=== PATIENT | female | born 1975 | race Caucasian/White ===

== ENCOUNTER 2022-10-13 22:37 | Emergency (ER) | payer OTHER ==
--- NOTE | 2022-10-13 22:49 | ERPHSYRPT ---
- History of Present Illness Time Seen by Provider: 10/13/22 22:48 Source: patient Exam Limitations: no limitations Physician History: This is an obese 47-year-old white female patient who is a diabetic and has hypertension and hyperlipidemia. 3 days ago she had tried some new shoes and over the last few days there has been increasing redness and tenderness and swelling of the right third toe. She stopped wearing those new shoes and yesterday, a granddaughter accidentally stepped on her same toe and there was increased pain. Over the last few days they have been increased redness swelling and evidence of infection with possibly an abscess dorsal aspect right third toe and blistering. She has not had any fevers or chills. She has not had any nausea or vomiting. There is some increased redness on the dorsal aspect of her right foot that travels proximally onto her right anterior ankle. Method of Injury: other (Rubbing from a new shoe onto the right third toe followed by same toe accidentally being stepped on) Occurred: days ago (3) Severity of Pain-Max: moderate Severity of Pain-Current: mild (To moderate) Lower Extremities Pain: 3rd toe: right Modifying Factors: Improves With: movement Associated Symptoms: other (Hurts to bear weight but can do so) Allergies/Adverse Reactions: No Known Drug Allergies Allergy (Unverified 10/13/22 22:54) Home Medications: Atorvastatin Calcium 20 mg PO DAILY 10/13/22 [History] Dulaglutide [Trulicity] 4.5 mg SQ WEEKLY 10/13/22 [History] Empagliflozin [Jardiance] 25 mg PO DAILY 10/13/22 [History] Metformin HCl [Metformin HCl ER] 750 mg PO DAILY 10/13/22 [History] lisinopriL [Lisinopril] 2.5 mg PO DAILY 10/13/22 [History] Hx Tetanus, Diphtheria Vaccination/Date Given: No (PT UNSURE) Hx Influenza Vaccination/Date Given: No Hx Pneumococcal Vaccination/Date Given: No Travel Risk - International Travel Have you traveled outside of the country in past 3 weeks: No - Coronavirus Screening Are you exhibiting any of the following symptoms?: No Close contact with a COVID-19 positive Pt in past 14-21 Days: No - Review of Systems Constitutional: No Symptoms Eyes: No Symptoms Ears, Nose, & Throat: No Symptoms Respiratory: No Symptoms Cardiac: No Symptoms Abdominal/Gastrointestinal: No Symptoms Genitourinary Symptoms: No Symptoms Musculoskeletal: Injury (Right third toe), Joint Redness Skin: Cellulitis Neurological: No Symptoms Psychological: No Symptoms Endocrine: No Symptoms Hematologic/Lymphatic: No Symptoms Immunological/Allergic: No Symptoms All Other Systems: Reviewed and Negative - Past Medical History Pertinent Past Medical History: No - Past Surgical History Past Surgical History: Yes Gastrointestinal: Appendectomy - Social History Smoking Status: Never smoker Exposure to second hand smoke: No Drug Use: none Patient Lives Alone: No - Nursing Vital Signs Nursing Vital Signs: Initial Vital Signs Temperature 97.6 F 10/13/22 22:43 Pulse Rate 88 10/13/22 22:43 Respiratory Rate 16 10/13/22 22:43 Blood Pressure 142/84 10/13/22 22:43 O2 Sat by Pulse Oximetry 99 10/13/22 22:43 Pain Scale Pain Intensity 9 - Physical Exam General Appearance: no apparent distress, alert, anxiety, obese Eyes, Ears, Nose, Throat Exam: normal ENT inspection, moist mucous membranes Neck Exam: normal inspection, non-tender, supple, full range of motion Cardiovascular/Respiratory Exam: chest non-tender, no respiratory distress Gastrointestinal/Abdominal Exam: non-tender Back Exam: normal inspection, normal range of motion, No CVA tenderness, No vertebral tenderness Hips Exam: bilateral: non-tender, normal inspection, normal range of motion, no evidence of injury Legs Exam: bilateral leg: non-tender, normal inspection, normal range of motion, no evidence of injury Knees Exam: bilateral knee: non-tender, normal inspection, normal range of motion, no evidence of injury Ankle Exam: right ankle: swelling (And cellulitis anterior right ankle), left ankle: non-tender, normal inspection, normal range of motion, no evidence of injury Foot Exam: right foot: bone tenderness (Right third toe), infection (Right third toe with dorsal blistering just proximal to the nailbed), soft tissue tenderness (Right third toe traveling proximally dorsal aspect right foot), swelling (Right third toe traveling approximately right dorsal foot), left foot: non-tender, normal inspection, normal range of motion, no evidence of injury Neuro/Tendon Exam: normal sensation, normal motor functions, normal tendon functions Mental Status Exam: alert, oriented x 3, cooperative Skin Exam: other (Cellulitis right foot and right third toe as described above) O2 Delivery: Room Air Procedures - Incision and Drainage Time of Procedure: 23:15 Timeout: Performed Site: Right third toe dorsal aspect Anesthesia: 1% Lidocaine cc's of anesthesia: 2 Blade Size: 15 I & D Procedure: betadine prep, culture obtained Results: small amount pus Progress: Blister of dorsal aspect right third toe unroofed. Granulation tissue present underneath. No odor Ordered Tests: Active Orders 24 hr Category Date Time Status FOOT (MINIMUM 3 VIEWS) Stat Exams 10/13/22 23:04 Taken - Progress Progress: improved, pain not gone completely Progress Note: 10/13/22 23:28 X-ray right foot reveals no evidence of any acute fracture or dislocation. This x-ray was interpreted by me. This patient's medical issue is of moderate complexity. This is based on the patient's complaint, history, additional history obtained from patient's spouse and physical exam findings. The patient has significant findings of infection which includes cellulitis that has mild proximal streaking and swelling of her right foot and blister overlying the proximal right third toe. Based on the above, and the fact that the patient had acute trauma to that foot in that toe, I ordered an x-ray of the right foot and performed an incision and drainage and unroofing of the blister that is present. I also provide the patient with an intramuscular injection of 1 g of Rocephin and 500 mg of oral Levaquin. I obtained a culture of the pus that came from the unroofed blister site. Patient also received a [place] 5/325 pill here in the emergency department and two tablets of the same were sent to her to take at home every 6 hours as needed for pain control since the pharmacies are closed at this time. discharge plan was discussed with the patient and the spouse. That included the medications that were sent to her pharmacy as well as soaking that right foot in warm Epson salts and/or warm soapy water twice a day and to cover the wound with a nonstick gauze. Patient is not to use ointments to that site. Patient is to return to the emergency department in 24 hours for reassessment. Counseled pt/family regarding: lab results, diagnosis, need for follow-up, rad results Medical Desision Making - Independent Historian Additional History obtained from: Spouse - Discussion of managment Reviewed:: Test results (Discussed with the patient and her spouse) Agreed on:: Treatment plan (Discussed with the patient and her spouse), need for follow-up (Discussed with the patient and her spouse) - Diagnostic Testing Diagnostic Testing: Diagnostic tests were ordered,analyzed, and reviewed by me and used in my medical decision making for this patient. Radiologic studies (if ordered) were read by me initially then discussed with the radiologist . - Risk of complications Low Risk: Low risk of morbidity from additional dx testing or treatment - Departure Departure Disposition: Home Clinical Impression: Diabetic infection of right foot Condition: Stable Critical Care Time: No Referrals: BEHZAD FLOYD MD [Primary Care Provider] - Follow up/PCP as directed Additional Instructions: Take your antibiotics as prescribed. Remove your dressing tomorrow morning and soak your foot twice a day in warm soapy water or warm Epson salt water. Blot dry use a hairdryer to dry the site and then cover the wound after each cleansing with a nonstick gauze. Return to the emergency department tomorrow so we can reassess the wound site as discussed. Prescriptions: Oxycodone HCl/Acetaminophen [Percocet 5-325 mg Tablet] 1 each PO Q8H PRN PRN #6 tablet MDD 3 PRN Reason: Moderate To Severe Pain Levofloxacin [Levaquin 500 MG Tablet] 500 mg PO DAILY #7 tablet
[2022-10-13 23:07] VITALS: BP 142/84
[2022-10-13] MEDS ORDERED: NORCO 5/325 MG PO ONE ×2 (23:35→23:36)
[2022-10-13] MEDS ORDERED: Rocephin 1000 MG INJ IM ONE (23:36)
[2022-10-13] MEDS ORDERED: Levofloxacin 500 MG Tablet PO ONE (23:36)
[2022-10-13] MEDS ORDERED: Levofloxacin 500 MG Tablet ONE (23:43)
[2022-10-13] MEDS ORDERED: NORCO 5/325 MG ONE (23:44)
[2022-10-13] MEDS ORDERED: Rocephin 1000 MG INJ ONE (23:44)
[2022-10-14 00:05] VITALS: PULSE 81; O2SAT 98
--- NOTE | 2022-10-14 08:48 | XRAY ---
Indication: 3rd toe pain/infection. Comparison: None 3 nonweightbearing views right foot demonstrates distal 3rd toe soft tissue swelling, small posterior/plantar heel spurs, and tiny spur base 5th metatarsal. No other bony, articular, or soft tissue abnormalities.
== END 2022-10-14 00:17 | disposition home or self-care (01) ==
LOC: ED 22:37
DX: E11.628 Type 2 diabetes mellitus with other skin complications (principal); L03.031 Cellulitis of right toe; M79.674 Pain in right toe(s); I10 Essential (primary) hypertension; E78.5 Hyperlipidemia, unspecified; Z79.85 Long-term (current) use of injectable non-insulin antidiabetic drugs; Z79.84 Long term (current) use of oral hypoglycemic drugs; Z79.899 Other long term (current) drug therapy; Z79.891 Long term (current) use of opiate analgesic
CPT/HCPCS: 10060; 73630; 87070; 87077; 87186; 96372; 99284; J0696; A9270-GY

== ENCOUNTER 2022-10-14 19:43 | Emergency (ER) | payer OTHER ==
[2022-10-14 19:59] VITALS: O2SAT 98
--- NOTE | 2022-10-14 20:40 | ERPHSYRPT ---
- History of Present Illness Time Seen by Provider: 10/14/22 20:39 Source: patient Exam Limitations: no limitations Patient Subjective Stated Complaint: pt states I was in here last night for a sore on my toe. The doctor cut a spot off. They told me to come back if the red ness gets out of the lines. Triage Nursing Assessment: pt ambulated into the er; pt is axo x4; c/o rt foot pain; bruising present to rt foot; open area to rt middle toe; drainage present to rt middle toe; strong pedal pulse to rt foot; skin PDW; no respiratory distress present; vitals wnl Physician History: Patient is a 47-year-old female presents emergency department for wound check. Patient was in our ED yesterday. Patient had an abscess on her toe. It was lanced the attending physician. Patient was started on antibiotics. The area of cellulitis was demarcated. Patient was concerned that the area of cellulitis was moving beyond the demarcated area. No other complaints. Patient has started her antibiotics as planned. No fever. Patient otherwise feels well. Significant other at bedside. They voiced no other complaints or concerns at this time. Portions of this note were created with voice recognition technology. There may be grammatical, spelling, punctuation or sound alike errors Timing/Duration: yesterday Severity: moderate Modifying Factors: Improves With: nothing Associated Symptoms: denies symptoms Allergies/Adverse Reactions: No Known Drug Allergies Allergy (Verified 10/14/22 19:49) Home Medications: Atorvastatin Calcium 20 mg PO DAILY 10/13/22 [History] Dulaglutide [Trulicity] 4.5 mg SQ WEEKLY 10/13/22 [History] Empagliflozin [Jardiance] 25 mg PO DAILY 10/13/22 [History] Metformin HCl [Metformin HCl ER] 750 mg PO DAILY 10/13/22 [History] lisinopriL [Lisinopril] 2.5 mg PO DAILY 10/13/22 [History] Hx Tetanus, Diphtheria Vaccination/Date Given: No (PT UNSURE) Hx Influenza Vaccination/Date Given: No Hx Pneumococcal Vaccination/Date Given: No Travel Risk - International Travel Have you traveled outside of the country in past 3 weeks: No - Coronavirus Screening Are you exhibiting any of the following symptoms?: No Close contact with a COVID-19 positive Pt in past 14-21 Days: No - Vaccine Status Have you recieved a Covid-19 vaccination: Yes Portable Machine Cutter: Moderna - Vaccination Dates Date of 2cond Vaccination (if applicable): n/a - Review of Systems Constitutional: No Symptoms, No Fever, No Chills Eyes: No Symptoms Ears, Nose, & Throat: No Symptoms Respiratory: No Symptoms, No Cough, No Dyspnea Cardiac: No Symptoms, No Chest Pain, No Edema, No Syncope Abdominal/Gastrointestinal: No Symptoms, No Abdominal Pain, No Nausea, No Vomiting, No Diarrhea Genitourinary Symptoms: No Symptoms, No Dysuria Musculoskeletal: No Symptoms, No Back Pain, No Neck Pain Skin: No Symptoms, No Rash Neurological: No Symptoms, No Dizziness, No Focal Weakness, No Sensory Changes Psychological: No Symptoms Endocrine: No Symptoms Hematologic/Lymphatic: No Symptoms Immunological/Allergic: No Symptoms All Other Systems: Reviewed and Negative - Past Medical History Pertinent Past Medical History: Yes Neurological History: No Pertinent History ENT History: No Pertinent History Cardiac History: High Cholesterol, Hypertension Respiratory History: No Pertinent History Endocrine Medical History: Diabetes Type II Musculoskeletal History: No Pertinent History GI Medical History: No Pertinent History History: No Pertinent History Psycho-Social History: No Pertinent History Female Reproductive Disorders: No Pertinent History - Past Surgical History Past Surgical History: Yes Gastrointestinal: Appendectomy Other Surgical History: kidney stone removal - Social History Smoking Status: Never smoker Exposure to second hand smoke: No Drug Use: none Patient Lives Alone: No - Female History Hx Now: No - Nursing Vital Signs Nursing Vital Signs: Initial Vital Signs Temperature 97.5 F 10/14/22 19:50 Pulse Rate 76 10/14/22 19:50 Respiratory Rate 20 10/14/22 19:50 Blood Pressure 121/65 10/14/22 19:50 O2 Sat by Pulse Oximetry 98 10/14/22 19:50 Pain Scale Pain Intensity 7 - Physical Exam General Appearance: no apparent distress, alert Eye Exam: PERRL/EOMI, eyes nml inspection Ears, Nose, Throat Exam: normal ENT inspection, pharynx normal Neck Exam: normal inspection, full range of motion Respiratory Exam: airway intact, No respiratory distress, No accessory muscle use Cardiovascular Exam: regular rate/rhythm, normal peripheral pulses Gastrointestinal/Abdomen Exam: No tenderness, No mass Back Exam: normal inspection, normal range of motion, No CVA tenderness, No vertebral tenderness Extremity Exam: normal inspection, normal range of motion, pelvis stable, other (Wound to right foot third digit. Healthy granular tissue observed. No lymphangitis.) Neurologic Exam: alert, oriented x 3, cooperative, normal mood/affect, sensation nml, No motor deficits Skin Exam: normal color, warm, dry, No rash Lymphatic Exam: No adenopathy SpO2 Interpretation: normal SpO2: 98 O2 Delivery: Room Air - Course Nursing assessment & vital signs reviewed: Yes - Progress Progress: improved Progress Note: Patient is a 47-year-old female history of diabetes presents to our ED for wound check. Patient was in our ER last night and advised to come in for wound check. Patient observed that overnight the area of cellulitis has expanded somewhat. However on my exam the area of cellulitis is still within the demarcated area. Physical exam shows a wound to the dorsal aspect of the third digit right foot. There is good granular tissue at the base of the wound. Patient's presentation is acute. Complexity of patient problem is low. Patient's history of diabetes has potential to complicate wound healing. Patient has started to take the antibiotics prescribed to her last night. Chance gray's diagnosis today was made based on history and physical. No specialized testing required. Patient has no complaints of pain. No indication for additional management. A referral to podiatry was provided to patient. Patient can see the lamination builder on Wednesday for further evaluation and treatment. Patient agrees to follow-up with podiatry as discussed. Level VM service provided was straightforward. Complexity the problem is low. Complexity of data reviewed and analyzed is not applicable. Risk of management and or risk of morbidity/mortality patient management is low. Patient served as independent historian. Significant other at bedside. Patient voices no other complaints or concerns at this time. Portions of this note were created with voice recognition technology. There may be grammatical, spelling, punctuation or sound alike errors I 10/14/22 20:43 Counseled pt/family regarding: diagnosis, need for follow-up Medical Desision Making - Diagnostic Testing Diagnostic Testing: Diagnostic tests were ordered,analyzed, and reviewed by me and used in my medical decision making for this patient. Radiologic studies (if ordered) were read by me initially then discussed with the radiologist . - Departure Departure Disposition: Home Clinical Impression: Visit for wound check Condition: Stable Critical Care Time: No Referrals: MARIEL,BEHZAD, MD [Primary Care Provider] - Follow up/PCP as directed Additional Instructions: Discharge/Care Plan MIKAELA CARDONA was seen on 10/14/22 in the Emergency Room. The patient was counseled regarding Diagnosis,Lab results, Imaging studies, need for follow up and when to return to the Emergency Room. Prescriptions given: Discharge Note I have spoken with the patient and/or caregivers. I have explained the patient's condition, diagnosis and treatment plan based on the information available to me at this time. I have answered the patient's and/or caregiver's questions and addressed any concerns. The patient and/or caregivers have as good understanding of the patient's diagnosis, condition and treatment plan as can be expected at this point. The vital signs have been stable. The patient's condition is stable and appropriate for discharge from the emergency department. The patient will pursue further outpatient evaluation with the primary care physician or other designated or consulting physician as outlined in the discharge instructions. The patient and/or caregivers are agreeable to this plan of care and follow-up instructions have been explained in detail. The patient and/or caregivers have received these instruction. The patient/and or caregivers are aware that any significant change in condition or worsening of symptoms should prompt an immediate return to this or the closest emergency department or call 911. Outpatient Orders: Ortho Referral Time Frame: 1 Day, Facility: [facility]. Hosp, Location: [facility]
[2022-10-14 20:59] VITALS: BP 110/68; PULSE 75
== END 2022-10-14 20:57 | disposition home or self-care (01) ==
LOC: ED 19:43
DX: Z48.00 Encounter for change or removal of nonsurgical wound dressing (principal); E11.9 Type 2 diabetes mellitus without complications; E78.5 Hyperlipidemia, unspecified; I10 Essential (primary) hypertension; Z79.85 Long-term (current) use of injectable non-insulin antidiabetic drugs; Z79.84 Long term (current) use of oral hypoglycemic drugs; Z79.899 Other long term (current) drug therapy
CPT/HCPCS: 99281

== ENCOUNTER 2024-10-24 06:40 | Day surgery (SDC) | payer OTHER ==
[2024-10-24] MEDS: Pepcid 20 MG VIAL IV ONE (07:36)
[2024-10-24] MEDS: Reglan 10 MG/2 ML IV ONE (07:36)
[2024-10-24] MEDS: Sodium Chloride 0.9% 1000 ML 1,000 ML IV SCH (07:36)
[2024-10-24] MEDS: CEFAZOLIN 2 GM/100 ML NaCl 2 GM/100 ML IVPB IV SCH (07:40)
[2024-10-24 07:45] VITALS: RESP 16
[2024-10-24 08:05] LABS: HCG URINE TEST NEGATIVE (NEGATIVE)
[2024-10-24 08:12] LABS: ANION GAP 19.1 MEQ/L (5-15); Calcium 9.6 mg/dL (8.4-10.2); Creatinine 1 0.67 mg/dL (0.52-1.04); EST GLOMERULAR FILTRATION RATE 106.4 ML/MIN; Potassium 4.2 mmol/L (3.5-5.1)
[2024-10-24] MEDS ORDERED: Sodium Chloride 0.9% 1000 ML 1,000 ML ONE (09:09)
[2024-10-24] MEDS ORDERED: SUBLIMAZE 100 MCG/2 ML ONE (09:15)
[2024-10-24] MEDS ORDERED: Versed 2 MG/2 ML Injection ONE (09:15)
[2024-10-24] MEDS ORDERED: propofoL IV ONE (09:15)
[2024-10-24] MEDS ORDERED: TRANEXAMIC 1,000 MG/100ML-NACL 1,000 MG/100 ML PIGGYBACK IV ONE (09:36)
[2024-10-24 10:40] VITALS: TEMP 98
[2024-10-24 10:56] VITALS: BP 115/67; PULSE 69; O2SAT 92
--- NOTE | 2024-10-25 17:48 | OP ---
SURGERY DATE/TIME: 10/24/2024 [id number] PREOPERATIVE DIAGNOSES: Postmenopausal bleeding with cervical polyp. POSTOPERATIVE DIAGNOSES: Postmenopausal bleeding with cervical polyp. PROCEDURES: Hysteroscopy, dilation and curettage, with removal of large cervical polyp. SURGEON: Felipe Eddy DO CANDLE MAKING SUPERVISOR: Audrey Fallon. ANESTHESIA: General. ESTIMATED BLOOD LOSS: Minimal. COMPLICATIONS: None. INDICATIONS: The risks, benefits, indications, and alternatives of the procedure were reviewed with the patient prior to the procedure. Patient understood the risks of infection, bleeding, bowel injury, bladder injury, ureteral injury, uterine perforation, pelvic infection, thromboembolic disorder associated with the surgery, and desires to have the surgery as a possible means to alleviate her current medical condition. DESCRIPTION OF PROCEDURE AND FINDINGS: At this point, patient was taken to the operating room, given general sedation, placed in the dorsal lithotomy position, prepped and draped in the usual sterile fashion. A weighted speculum was then placed in the patient's vagina, and the anterior lip of the cervix was grasped with a single tooth tenaculum. There was an approximately 4 x 3 cm cervical polyp that was noted emanating from the cervical region where a ring forceps was used and placed on the cervical polyp, and with multiple clockwise motions, the polyp was removed in its entirety with minimal bleeding that was noted. From this point, dilators were advanced through the endocervical region to dilate the cervix. After a complete dilatation, the 5 mm hysteroscope was then placed into the fundus of the uterus where visualization appeared to be within normal limits with no gross abnormalities within the uterine cavity. There were no remnants of cervical polyp that was located within the endometrial lining. There was no bleeding located within the uterine cavity as well. From this point, the hysteroscope was removed. A curette was then placed into the fundus of the uterus and curettage was performed in all quadrants of the uterus, retrieving a mild to moderate amount of tissue. From this point, hemostasis was obtained. It was noted that the patient did have some cervical bleeding after the procedure, and TXA 1 g was given to alleviate her symptoms as her bleeding did subside. From this point, patient was then taken out of the dorsal lithotomy position, was taken out of anesthesia, and was then taken to the recovery room in stable condition. All instruments and laps were accounted for x2.
== END 2024-10-24 11:10 | disposition home or self-care (01) ==
LOC: SDC 06:40
PROVIDERS: ATTEND Obstetrics & Gynecology
DX: N95.0 Postmenopausal bleeding (principal); N84.1 Polyp of cervix uteri; E11.9 Type 2 diabetes mellitus without complications; I10 Essential (primary) hypertension
CPT/HCPCS: 36415; 58558; 80048; 81025; 82947; 83036; 93005; J0690; J2250; J2704; J3010